=== PATIENT | male | born 1970 | race Hispanic/Latino ===

== ENCOUNTER 2018-01-16 13:02 | Outpatient (CLI) | payer OTHER | END 2018-01-16 13:03 | disposition home or self-care (01) | LOC: BICRAD 13:02 | PROVIDERS: ATTEND Internal Medicine | DX: M25.462 Effusion, left knee (principal) ==

== ENCOUNTER 2019-12-07 18:36 | Inpatient (IN) | payer OTHER ==
[2019-12-07 19:10] LABS: #Lymphocytes 1.4 thou/uL (1.20-3.40); #Monocytes 0.5 thou/uL (0.11-0.59); #Neutrophils 8.4 thou/uL (1.40-6.50); %Basophils 0.1 % (0.0-1.0); %Eosinophils 0.2 % (0.0-10.0); %Lymphocytes 13.3 % (21.0-51.0); %Monocytes 4.5 % (0.0-10.0); %Neutrophils 81.9 % (42.0-75.0); Hemoglobin 15.1 g/dL (14.0-18.0); Mean Corpuscular HGB CONC 33.5 g/dL (32.0-36.0); Mean Corpuscular Hemoglobin 31.8 pg (27.0-31.0); Mean Corpuscular Volume 94.8 fL (78.0-98.0); Mean Platelet Volume 8.3 fL (7.4-10.4); Platelet Count 215 thou/uL (130-400); RBC Distribution Width 11.8 % (11.5-14.5); Red Blood Cell (RBC) Count 4.76 mill/uL (4.70-6.10); White Blood Cell (WBC) Count 10.2 thou/uL (4.8-10.8)
--- NOTE | 2019-12-07 19:20 | RAD ---
Chest AP view INDICATION: Fever and cough COMPARISON: None FINDINGS: Lungs: There are patchy airspace opacities within both lower lobes Cardiac silhouette: The cardiomediastinal silhouette appears within normal limits. Pulmonary vasculature: Normal Pleural spaces: No pleural effusion or pneumothorax is demonstrated. Upper abdomen: No abnormality seen. Osseous structures: No acute osseous abnormality. Additional findings: None. IMPRESSION: Patchy airspace opacities within both lower lobes. This is a pattern that can be seen with Covid 19 i nfections. Recommend consideration for Covid testing.
[2019-12-07 19:26] LABS: ALT (SGPT) 62 U/L (8-55); AST (SGOT) 60 U/L (5-34); Albumin 3.9 g/dL (3.5-5.0); Alkaline Phosphatase 98 U/L (40-110); Anion Gap 14 mmol/L (10-20); BUN (Urea Nitrogen) 10 mg/dL (8.9-20.6); Bilirubin, Total 0.5 mg/dL (0.2-1.2); Calc. Creatinine Clearance 0 mL/min (70-130); Calcium 9.2 mg/dL (7.8-10.44); Carbon Dioxide 25 mmol/L (22-29); Chloride 102 mmol/L (98-107); Estimated GFR-MDRD 88; Globulin 4.2 g/dL (2.4-3.5); Glucose 112 mg/dL (70-105); Potassium 4.2 mmol/L (3.5-5.1); Protein, Total 8.1 g/dL (6.0-8.3); Sodium 137 mmol/L (136-145)
[2019-12-07] MEDS ORDERED: Azithromycin 500 MG VIAL ONE (20:32)
[2019-12-07] MEDS ORDERED: Acetaminophen 500 MG TAB ONE (20:32)
[2019-12-08 00:41] VITALS: BMI 25.7
[2019-12-08] MEDS ORDERED: hydrALAZINE 20 MG/ML VIAL SLOW IVP PRN (01:57)
[2019-12-08] MEDS ORDERED: Promethazine HCl 12.5 MG in Sodium Chloride 0.9% 50 ML IVPB PRN (01:57)
[2019-12-08] MEDS ORDERED: Acetaminophen 325 MG TAB PO PRN (01:57)
[2019-12-08] MEDS ORDERED: HYDROcodone/Acetaminophen 5/325 mg Tablet PO PRN (01:57)
[2019-12-08] MEDS ORDERED: Ondansetron PF 4 MG/2 ML Vial IVP PRN (01:57)
[2019-12-08] MEDS ORDERED: cloNIDine 0.1 MG TAB PO PRN (01:57)
[2019-12-08] MEDS ORDERED: Labetalol HCl 100 MG/20 ML VIAL SLOW IVP PRN (01:57)
[2019-12-08] MEDS ORDERED: Azithromycin 500 MG in Syringe 0 ML IVPB ONE (02:01)
--- NOTE | 2019-12-08 02:02 | PDOC.HHP ---
Hospitalist HPI - History of Present Illness fever, myalgia, malaise, lethargy, cough, chest/back pain History of Present Illness: Patient is a 49 year old male with no PMH who presents to ED for fever, myalgia , malaise, lethargy, cough, chest/back pain. Symptoms x several days, no known covid exposure, no cardiac history. Chest pain is pleuritic. RR in 30s but improved. Some diarrhea yesterday. In ED, lactic acid 1.1, LFTs mildly elevated , CXR revealed bilateral lower lobe pneumonia suspicious for COVID 19. No obvious sepsis, blood cultures collected, given IVF, abx, placed on O2 and admitted for likely covid 19 pneumonia. Hospitalist ROS - Review of Systems Constitutional: reports: fever, chills, weakness, malaise Eyes: denies: pain, vision change, conjunctivae inflammation, eyelid inflammation, redness, other ENT: denies: ear pain, ear discharge, nose pain, nose discharge, nose congestion , mouth pain, mouth swelling, throat pain, throat swelling, other Respiratory: reports: cough, shortness of breath, pleuritic pain. denies: dry, hemoptysis, SOB with excertion, sputum, wheezing, other Cardiovascular: denies: chest pain, palpitations, orthopnea, paroxysmal noc. dyspnea, edema, light headedness, other Gastrointestinal: reports: diarrhea. denies: nausea, vomiting, abdominal pain, constipation, melena, hematochezia, other Genitourinary: denies: dysuria, frequency, incontinence, hematuria, retention, other Musculoskeletal: reports: other (diffuse myalgia chest and back). denies: neck pain, shoulder pain, arm pain, back pain, hand pain, leg pain, foot pain Skin: denies: rash, lesions, lima, bruising, other Neurological: denies: weakness, numbness, incoordination, change in speech, confusion, seizures, other All other systems reviewed; all pertinent +/- noted in HPI/Subj Hospitalist History - Past Medical History Other Medical History: no significant medical, surgical, family history - Past Surgical History Other Surgical History: no significant medical, surgical, family history - Family History Other Family History: no significant medical, surgical, family history - Social History Smoking Status: Never smoker Alcohol: reports: None Drugs: reports: none - Exam General Appearance: NAD, awake alert Eye: PERRL, anicteric sclera ENT: normocephalic atraumatic, no oropharyngeal lesions, moist mucosa Neck: supple, symmetric, no JVD, no thyromegaly, no lymphadenopathy, no carotid bruit Heart: RRR, no murmur, no gallops, no rubs, normal peripheral pulses Respiratory: CTAB, no wheezes, no rales, no ronchi, normal chest expansion, no tachypnea, normal percussion Gastrointestinal: soft, non-tender, non-distended, normal bowel sounds, no palpable masses, no hepatomegaly, no splenomegaly, no bruit Extremities: no cyanosis, no clubbing, no edema Skin: normal turgor, no lesions, no rashes Neurological: cranial nerve grossly intact, normal sensation to touch, no weakness, no focal deficits, no new deficit Musculoskeletal: normal tone, normal strength, no muscle wasting Psychiatric: normal affect, normal behavior, A&O x 3 Hospitalist Results - Labs Result Diagrams: 12/07/19 18:56 12/07/19 18:56 Lab results: WBC 10.2 thou/uL (4.8-10.8) 12/07/19 18:56 Hgb 15.1 g/dL (14.0-18.0) 12/07/19 18:56 Hct 45.1 % (42.0-52.0) 12/07/19 18:56 MCV 94.8 fL (78.0-98.0) 12/07/19 18:56 Plt Count 215 thou/uL (130-400) 12/07/19 18:56 Neutrophils % 81.9 % (42.0-75.0) H 12/07/19 18:56 Sodium 137 mmol/L (136-145) 12/07/19 18:56 Potassium 4.2 mmol/L (3.5-5.1) 12/07/19 18:56 Chloride 102 mmol/L (98-107) 12/07/19 18:56 Carbon Dioxide 25 mmol/L (22-29) 12/07/19 18:56 BUN 10 mg/dL (8.9-20.6) 12/07/19 18:56 Creatinine 0.92 mg/dL (0.7-1.3) 12/07/19 18:56 Glucose 112 mg/dL (70-105) H 12/07/19 18:56 Lactic Acid 1.1 mmol/L (0.5-2.2) 12/07/19 18:56 Calcium 9.2 mg/dL (7.8-10.44) 12/07/19 18:56 Total Bilirubin 0.5 mg/dL (0.2-1.2) 12/07/19 18:56 AST 60 U/L (5-34) H 12/07/19 18:56 ALT 62 U/L (8-55) H 12/07/19 18:56 Alkaline Phosphatase 98 U/L (40-110) 12/07/19 18:56 Serum Total Protein 8.1 g/dL (6.0-8.3) 12/07/19 18:56 Albumin 3.9 g/dL (3.5-5.0) 12/07/19 18:56 Additional comment: VITAL SIGNS SunDec 07, 2019 22:00 CATHY Villalobos Shelley BP: 113/63 Pulse: 78 Resp: 26 Temp: 99.6 (Oral) Pain: 8 O2 sat: 96 on (Room Air) Time: 12/07/2019 22:00. XR Chest 1 View Portable Observe DT: SunDec 07, 2019 18:51 CXRP Chest AP view INDICATION: Fever and cough COMPARISON: None FINDINGS: Lungs: There are patchy airspace opacities within both lower lobes Cardiac silhouette: The cardiomediastinal silhouette appears within normal limits. Pulmonary vasculature: Normal Pleural spaces: No pleural effusion or pneumothorax is demonstrated. Upper abdomen: No abnormality seen. Osseous structures: No acute osseous abnormality. Additional findings: None. IMPRESSION: Patchy airspace opacities within both lower lobes. This is a pattern that can be seen with Covid 19 i nfections. Recommend consideration for Covid testing. - EKG Interpretation EKG: NSR 86 bpm, no obvious ST changes Hospitalist H&P A/P - Plan Plan: Patient is a 49 year old male with no PMH who presents to ED for fever, myalgia , malaise, lethargy, cough, chest/back pain. # fever, myalgia, malaise, lethargy, cough, chest/back pain Symptoms x several days, no known covid exposure, no cardiac history. Chest pain is pleuritic. RR in 30s but improved. Some diarrhea yesterday. In ED, lactic acid 1.1, LFTs mildly elevated, CXR revealed bilateral lower lobe pneumonia suspicious for COVID 19. No obvious sepsis, blood cultures collected, given IVF, abx, placed on O2 and admitted for likely covid 19 pneumonia. - admitted to med/surg - follow covid test - empiric ceftriaxone/azithromycin - monitor for progression of disease
[2019-12-08] MEDS: cefTRIAXone\\ROCEPHIN 1 GM in Sodium Chloride 0.9% 100 ML IVPB SCH (02:49)
[2019-12-08] MEDS: Guaifenesin DM 100-10/5 ML UDCUP PO PRN ×2 (03:11→17:10)
[2019-12-08 05:32] LABS: #Lymphocytes 1.6 thou/uL (1.20-3.40); #Monocytes 0.5 thou/uL (0.11-0.59); #Neutrophils 7.5 thou/uL (1.40-6.50); %Basophils 0.3 % (0.0-1.0); %Eosinophils 0.1 % (0.0-10.0); %Lymphocytes 16.6 % (21.0-51.0); %Monocytes 5.4 % (0.0-10.0); %Neutrophils 77.6 % (42.0-75.0); Hemoglobin 13.8 g/dL (14.0-18.0); Mean Corpuscular HGB CONC 34.4 g/dL (32.0-36.0); Mean Corpuscular Hemoglobin 32.3 pg (27.0-31.0); Mean Corpuscular Volume 93.8 fL (78.0-98.0); Mean Platelet Volume 8.4 fL (7.4-10.4); Platelet Count 221 thou/uL (130-400); RBC Distribution Width 11.8 % (11.5-14.5); Red Blood Cell (RBC) Count 4.27 mill/uL (4.70-6.10); White Blood Cell (WBC) Count 9.7 thou/uL (4.8-10.8)
[2019-12-08 05:53] LABS: Anion Gap 11 mmol/L (10-20); BUN (Urea Nitrogen) 10 mg/dL (8.9-20.6); Calc. Creatinine Clearance 119 mL/min (70-130); Calcium 8.7 mg/dL (7.8-10.44); Carbon Dioxide 26 mmol/L (22-29); Chloride 103 mmol/L (98-107); Estimated GFR-MDRD Greater than 90; Glucose 114 mg/dL (70-105); Magnesium 2.4 mg/dL (1.6-2.6); Potassium 4.1 mmol/L (3.5-5.1); Sodium 136 mmol/L (136-145)
[2019-12-08 05:58] LABS: Troponin I 0.027 ng/mL (< 0.028)
[2019-12-08] MEDS: Azithromycin 250 MG TAB PO SCH (08:36)
[2019-12-08] MEDS: Famotidine 20 MG TAB PO SCH ×2 (08:36→21:11)
[2019-12-08 08:55] LABS: Troponin I Less than 0.010 ng/mL (< 0.028)
--- NOTE | 2019-12-08 12:05 | EKG ---
Test Reason : CP Blood Pressure : / mmHG Vent. Rate : 086 BPM Atrial Rate : 086 BPM P-R Int : 128 ms QRS Dur : 098 ms QT Int : 360 ms P-R-T Axes : 041 -24 027 degrees QTc Int : 430 ms Normal sinus rhythm Normal ECG Confirmed by TRAVIS STINSON, KERVIN Hall ([id number]), image editor ELISABET MORENO ([id number]) on 12/08/2019 12:04:51 PM Referred By: Confirmed By:KERVIN ROBLES MD
[2019-12-08 14:19] LABS: SARS-CoV-2 MS2 Positive; SARS-CoV-2 N Gene Positive; SARS-CoV-2 S Gene Positive; SARS-CoV-2 orf1ab Positive
[2019-12-08] MEDS ORDERED: traMADol HCl 50 MG TAB PO PRN (14:55)
--- NOTE | 2019-12-08 14:57 | PDOC.HOSPP ---
- Subjective Encounter Date: 12/08/19 Encounter Time: 10:20 Subjective: pt is sleeping, on verabl questioning, he is able to respond. he does not exhibit any obvious SOB; COVID +ve. - Objective Vital Signs & Weight: Vital Signs (12 hours) Temp Pulse Resp BP Pulse Ox 12/08/19 13:00 100.2 F H 84 20 129/76 93 L 12/08/19 08:45 100.7 F H 75 18 127/76 93 L 12/08/19 08:00 93 L 12/08/19 03:22 99.5 F 77 18 115/72 95 Weight Weight 164 lb 0.383 oz I&O: 12/07/19 12/08/19 12/09/19 06:59 06:59 06:59 Intake Total 420 Balance 420 Result Diagrams: 12/08/19 05:06 12/08/19 05:06 Hospitalist ROS - Medication Medications: Active Medications Generic Name Dose Route Start Last Admin Trade Name Freq PRN Reason Stop Dose Admin Azithromycin 250 mg 12/08/19 09:00 12/08/19 08:36 Zithromax PO 12/11/19 09:01 250 mg DAILY MARGRET Administration Famotidine 20 mg 12/08/19 09:00 12/08/19 08:36 Pepcid PO 20 mg BID MARGRET Administration Guaifenesin/Dextromethorphan 15 ml 12/08/19 01:57 12/08/19 03:11 Robitussin Dm PO 15 ml Q4H PRN Administration Cough Ceftriaxone Sodium 1 gm/ 100 mls @ 200 mls/hr 12/08/19 02:30 12/08/19 02:49 Sodium Chloride IVPB 100 mls Q24HR MARGRET Administration - Exam General Appearance: NAD, awake alert Eye: PERRL ENT: normocephalic atraumatic Neck: supple Heart: normal peripheral pulses Respiratory: normal chest expansion Neurological: no focal deficits Psychiatric: normal affect, normal behavior, A&O x 3 Hosp A/P - Plan COVID pneumonia Hypoxic resp failure Low grage temp Generalized body ache/pain --symptomatic treatment - will cw abx -decadron and lovenox added - will fw on crp and other labs periodically
[2019-12-08 16:37] LABS: Troponin I Less than 0.010 ng/mL (< 0.028)
[2019-12-08] MEDS: Enoxaparin Sodium 40 MG/0.4 ML SYRINGE SC SCH (21:11)
[2019-12-09] MEDS: cefTRIAXone\\ROCEPHIN 1 GM in Sodium Chloride 0.9% 100 ML IVPB SCH (01:31)
[2019-12-09 05:58] LABS: #Basophils 0.1 thou/uL (0.0-0.2); #Eosinphils 0.1 thou/uL (0.0-0.7); #Lymphocytes 3.7 thou/uL (1.20-3.40); #Monocytes 0.9 thou/uL (0.11-0.59); #Neutrophils 3.9 thou/uL (1.40-6.50); %Basophils 0.8 % (0.0-1.0); %Eosinophils 1.5 % (0.0-10.0); %Lymphocytes 42.7 % (21.0-51.0); %Monocytes 9.8 % (0.0-10.0); %Neutrophils 45.1 % (42.0-75.0); Hemoglobin 14.4 g/dL (14.0-18.0); Mean Corpuscular HGB CONC 32.7 g/dL (32.0-36.0); Mean Corpuscular Hemoglobin 30.8 pg (27.0-31.0); Mean Corpuscular Volume 94.1 fL (78.0-98.0); Platelet Count 316 thou/uL (130-400); RBC Distribution Width 11.8 % (11.5-14.5); Red Blood Cell (RBC) Count 4.67 mill/uL (4.70-6.10); White Blood Cell (WBC) Count 8.7 thou/uL (4.8-10.8)
[2019-12-09 06:25] LABS: Anion Gap 16 mmol/L (10-20); BUN (Urea Nitrogen) 14 mg/dL (8.9-20.6); Calc. Creatinine Clearance 115 mL/min (70-130); Calcium 9.3 mg/dL (7.8-10.44); Carbon Dioxide 22 mmol/L (22-29); Chloride 104 mmol/L (98-107); Estimated GFR-MDRD Greater than 90; Glucose 93 mg/dL (70-105); Magnesium 2.6 mg/dL (1.6-2.6); Potassium 4.1 mmol/L (3.5-5.1); Sodium 138 mmol/L (136-145)
[2019-12-09] MEDS: Azithromycin 250 MG TAB PO SCH (08:16)
[2019-12-09] MEDS: Enoxaparin Sodium 40 MG/0.4 ML SYRINGE SC SCH ×2 (08:16→21:45)
[2019-12-09] MEDS: Dexamethasone 4 MG TAB PO SCH (08:16)
[2019-12-09 11:12] LABS: ALT (SGPT) 87 U/L (8-55); AST (SGOT) 105 U/L (5-34); Albumin 3.6 g/dL (3.5-5.0); Alkaline Phosphatase 95 U/L (40-110); Bilirubin, Direct 0.2 mg/dL (0.1-0.3); Bilirubin, Total 0.4 mg/dL (0.2-1.2); CRP (Inflammatory) 16.05 mg/dL (= or < 0.5); Protein, Total 7.8 g/dL (6.0-8.3)
[2019-12-09] MEDS: Famotidine 20 MG TAB PO SCH (11:55)
--- NOTE | 2019-12-09 15:09 | PDOC.HOSPP ---
- Subjective Encounter Date: 12/09/19 Encounter Time: 10:30 Subjective: sudanese speaking, pt seen briefly and he is resting comfortably. explained that he may be here as we are following inflammatory markers, O2 status and clinical eval. pt understands and he speaks Cymraes. - Objective Vital Signs & Weight: Vital Signs (12 hours) Temp Pulse Resp BP Pulse Ox 12/09/19 13:05 99.1 F 74 18 137/85 96 12/09/19 08:20 99.6 F 73 18 114/76 94 L 12/09/19 04:40 98.7 F 68 16 110/77 94 L Weight Weight 164 lb 0.383 oz I&O: 12/08/19 12/09/19 12/10/19 06:59 06:59 06:59 Intake Total 420 740 Balance 420 740 Result Diagrams: 12/09/19 05:28 12/09/19 05:28 Hospitalist ROS - Medication Medications: Active Medications Generic Name Dose Route Start Last Admin Trade Name Freq PRN Reason Stop Dose Admin Acetaminophen 650 mg 12/08/19 01:57 12/08/19 16:15 Tylenol PO 650 mg Q4H PRN Administration Headache/Fever/Mild Pain (1-3) Azithromycin 250 mg 12/08/19 09:00 12/09/19 08:16 Zithromax PO 12/11/19 09:01 250 mg DAILY MARGRET Administration Dexamethasone 6 mg 12/09/19 08:00 12/09/19 08:16 Decadron PO 6 mg QAM-WM MARGRET Administration Enoxaparin Sodium 40 mg 12/08/19 21:00 12/09/19 08:16 Lovenox SC 40 mg BID MARGRET Administration Guaifenesin/Dextromethorphan 15 ml 12/08/19 01:57 12/08/19 17:10 Robitussin Dm PO 15 ml Q4H PRN Administration Cough Ceftriaxone Sodium 1 gm/ 100 mls @ 200 mls/hr 12/08/19 02:30 12/09/19 01:31 Sodium Chloride IVPB 100 mls Q24HR MARGRET Administration - Exam General Appearance: NAD, awake alert Eye: PERRL ENT: normocephalic atraumatic Neurological: no focal deficits Hosp A/P - Plan COVID pneumonia Hypoxic resp failure Low grage temp Generalized body ache/pain --symptomatic treatment - will cw abx -decadron and lovenox added - will fw on crp and other labs periodically sats good - no lab markders on admission -today - d-dimer 0.8 Enzo 2670 CRP 16 LFT - 105/87/95 resp'ly Admitted on He had sxs for few days prior to coming here. as markers are quite high, even though pt clinically looks good, COVID could have 2nd phase of worsening -so will get one more sets of these markers in 2 to 3 days, if they are trending down and he is clinically remained stable, then sosa.
[2019-12-09] MEDS ORDERED: Albuterol 200 PUFF (6.7GM INHALER) INH PRN (19:43)
[2019-12-10] MEDS: cefTRIAXone\\ROCEPHIN 1 GM in Sodium Chloride 0.9% 100 ML IVPB SCH (02:47)
[2019-12-10 06:31] LABS: #Basophils 0.1 thou/uL (0.0-0.2); #Eosinphils 0.1 thou/uL (0.0-0.7); #Lymphocytes 1.6 thou/uL (1.20-3.40); #Monocytes 0.7 thou/uL (0.11-0.59); #Neutrophils 4.5 thou/uL (1.40-6.50); %Basophils 0.7 % (0.0-1.0); %Eosinophils 0.9 % (0.0-10.0); %Monocytes 10.3 % (0.0-10.0); Mean Corpuscular HGB CONC 33.9 g/dL (32.0-36.0); Mean Corpuscular Hemoglobin 31.6 pg (27.0-31.0); Mean Platelet Volume 7.3 fL (7.4-10.4); Platelet Count 393 thou/uL (130-400); RBC Distribution Width 11.6 % (11.5-14.5); Red Blood Cell (RBC) Count 4.43 mill/uL (4.70-6.10); White Blood Cell (WBC) Count 6.9 thou/uL (4.8-10.8)
[2019-12-10 06:57] LABS: Anion Gap 16 mmol/L (10-20); BUN (Urea Nitrogen) 17 mg/dL (8.9-20.6); Calc. Creatinine Clearance 104 mL/min (70-130); Calcium 9.3 mg/dL (7.8-10.44); Carbon Dioxide 23 mmol/L (22-29); Chloride 102 mmol/L (98-107); Estimated GFR-MDRD 89; Glucose 119 mg/dL (70-105); Magnesium 2.4 mg/dL (1.6-2.6); Sodium 137 mmol/L (136-145)
[2019-12-10] MEDS: Azithromycin 250 MG TAB PO SCH (09:09)
[2019-12-10] MEDS: Dexamethasone 4 MG TAB PO SCH (09:09)
[2019-12-10] MEDS: Enoxaparin Sodium 40 MG/0.4 ML SYRINGE SC SCH ×2 (09:09→20:59)
[2019-12-10] MEDS: Pantoprazole 40 MG GRANULES PACKET PO SCH (09:15)
--- NOTE | 2019-12-10 15:18 | PDOC.HOSPP ---
- Subjective Encounter Date: 12/10/19 Encounter Time: 12:45 Subjective: pt followed peripherally mild cough and mild SOB. talk to RN sats 95% in RA. - Objective Vital Signs & Weight: Vital Signs (12 hours) Temp Pulse Resp BP Pulse Ox 12/10/19 12:20 98.7 F 65 22 H 119/67 95 12/10/19 09:15 98.1 F 64 20 118/79 95 12/10/19 04:26 98.5 F 59 L 18 124/75 94 L Weight Weight 164 lb 0.383 oz I&O: 12/09/19 12/10/19 12/11/19 06:59 06:59 06:59 Intake Total 740 Balance 740 Result Diagrams: 12/10/19 06:21 12/10/19 06:21 Hospitalist ROS - Medication Medications: Active Medications Generic Name Dose Route Start Last Admin Trade Name Freq PRN Reason Stop Dose Admin Acetaminophen 650 mg 12/08/19 01:57 12/08/19 16:15 Tylenol PO 650 mg Q4H PRN Administration Headache/Fever/Mild Pain (1-3) Albuterol Sulfate 3 puff 12/09/19 19:43 12/09/19 20:21 Proventil Hfa INH 3 puff Q6H PRN Administration SOB &/or Wheezing Azithromycin 250 mg 12/08/19 09:00 12/10/19 09:09 Zithromax PO 12/11/19 09:01 250 mg DAILY MARGRET Administration Dexamethasone 6 mg 12/09/19 08:00 12/10/19 09:09 Decadron PO 6 mg QAM-WM MARGRET Administration Enoxaparin Sodium 40 mg 12/08/19 21:00 12/10/19 09:09 Lovenox SC 40 mg BID MARGRET Administration Guaifenesin/Dextromethorphan 15 ml 12/08/19 01:57 12/08/19 17:10 Robitussin Dm PO 15 ml Q4H PRN Administration Cough Ceftriaxone Sodium 1 gm/ 100 mls @ 200 mls/hr 12/08/19 02:30 12/10/19 02:47 Sodium Chloride IVPB 100 mls Q24HR MARGRET Administration Pantoprazole Sodium 40 mg 12/10/19 09:00 12/10/19 09:15 Protonix PO 40 mg DAILY MARGRET Administration Hosp A/P - Plan COVID pneumonia Hypoxic resp failure Low grage temp Generalized body ache/pain --symptomatic treatment - will cw abx -decadron and lovenox added - will fw on crp and other labs periodically sats good - no lab markders on admission -today - d-dimer 0.8 Enzo 2670 CRP 16 LFT - 105/87/95 resp'ly Admitted on He had sxs for few days prior to coming here. as markers are quite high, even though pt clinically looks good, COVID could have 2nd phase of worsening -so will get one more sets of these markers in 2 to 3 days, if they are trending down and he is clinically remained stable, then dc. fw on crp adn ferritin tomorrow. if numbers coming down and no productive cough or severe hypoxia, plan for dc.
[2019-12-10] MEDS: Guaifenesin DM 100-10/5 ML UDCUP PO PRN (16:41)
[2019-12-11] MEDS: cefTRIAXone\\ROCEPHIN 1 GM in Sodium Chloride 0.9% 100 ML IVPB SCH (02:13)
[2019-12-11] MEDS: Enoxaparin Sodium 40 MG/0.4 ML SYRINGE SC SCH ×2 (09:03→20:57)
[2019-12-11] MEDS: Dexamethasone 4 MG TAB PO SCH (09:03)
[2019-12-11] MEDS: Azithromycin 250 MG TAB PO SCH (09:03)
[2019-12-11] MEDS: Pantoprazole 40 MG GRANULES PACKET PO SCH (09:04)
--- NOTE | 2019-12-11 15:26 | PDOC.HOSPP ---
- Subjective Encounter Date: 12/11/19 Encounter Time: 12:40 Subjective: pt seen this morning, sitting in the bed. comfortable, states that he has some cough and SOB w.. ambulation to the rest room. He is RA. - Objective Vital Signs & Weight: Vital Signs (12 hours) Temp Pulse Resp BP Pulse Ox 12/11/19 08:00 98.3 F 74 20 131/78 94 L Weight Weight 164 lb 0.383 oz I&O: 12/10/19 12/11/19 12/12/19 06:59 06:59 06:59 Intake Total 171 Balance 171 Result Diagrams: 12/10/19 06:21 12/10/19 06:21 Hospitalist ROS - Medication Medications: Active Medications Generic Name Dose Route Start Last Admin Trade Name Freq PRN Reason Stop Dose Admin Acetaminophen 650 mg 12/08/19 01:57 12/08/19 16:15 Tylenol PO 650 mg Q4H PRN Administration Headache/Fever/Mild Pain (1-3) Albuterol Sulfate 3 puff 12/09/19 19:43 12/09/19 20:21 Proventil Hfa INH 3 puff Q6H PRN Administration SOB &/or Wheezing Dexamethasone 6 mg 12/09/19 08:00 12/11/19 09:03 Decadron PO 6 mg QAM-WM MARGRET Administration Enoxaparin Sodium 40 mg 12/08/19 21:00 12/11/19 09:03 Lovenox SC 40 mg BID MARGRET Administration Guaifenesin/Dextromethorphan 15 ml 12/08/19 01:57 12/10/19 16:41 Robitussin Dm PO 15 ml Q4H PRN Administration Cough Ceftriaxone Sodium 1 gm/ 100 mls @ 200 mls/hr 12/08/19 02:30 12/11/19 02:13 Sodium Chloride IVPB 100 mls Q24HR MARGRET Administration Pantoprazole Sodium 40 mg 12/10/19 09:00 12/11/19 09:04 Protonix PO 40 mg DAILY MARGRET Administration Sodium Chloride 10 ml 12/08/19 02:06 12/11/19 02:13 Flush - Normal Saline IVF 10 ml PRN PRN Administration Saline Flush Tramadol HCl 50 mg 12/08/19 14:55 12/11/19 13:25 Ultram PO 50 mg Q6H PRN Administration Pain - Exam General Appearance: NAD Eye: PERRL ENT: normocephalic atraumatic Neck: supple Neurological: no focal deficits Psychiatric: A&O x 3 Hosp A/P - Plan COVID pneumonia Hypoxic resp failure Low grage temp Generalized body ache/pain --symptomatic treatment - will cw abx -decadron and lovenox added - will fw on crp and other labs periodically sats good - no lab markers on admission -today - d-dimer 0.8 Enzo 2670----------------->988[on 2nd] CRP 16------------------->4.1 LFT - 105/87/95 resp'ly Admitted on He had sxs for few days prior to coming here. as markers are quite high, even though pt clinically looks good, PRIMO could have 2nd phase of worsening -so will get one more sets of these markers in 2 to 3 days, if they are trending down and he is clinically remained stable, then dc. fw on crp and ferritin --trending down as above. -- will see how he does tomorrow, and no hypoxia and cough not worsening, then plan for dc.
[2019-12-12] MEDS: cefTRIAXone\\ROCEPHIN 1 GM in Sodium Chloride 0.9% 100 ML IVPB SCH (02:28)
[2019-12-12] MEDS: Dexamethasone 4 MG TAB PO SCH (08:19)
[2019-12-12] MEDS: Enoxaparin Sodium 40 MG/0.4 ML SYRINGE SC SCH ×2 (08:19→19:34)
[2019-12-12] MEDS ORDERED: Azithromycin 250 MG TAB PO SCH (10:45)
[2019-12-12] MEDS ORDERED: Azithromycin 500 MG in Sodium Chloride 0.9% 250 ML 250 ML IVPB SCH (11:00)
--- NOTE | 2019-12-12 13:30 | PDOC.HOSPP ---
- Subjective Encounter Date: 12/12/19 Encounter Time: 11:00 Subjective: pt feels short of breath not feeling as good as y'day. he looks fatigued than y'day. though his sats are better. 96% -- no change for the last few days. talk to RN. - Objective Vital Signs & Weight: Vital Signs (12 hours) Temp Pulse Resp BP Pulse Ox 12/12/19 11:23 98.3 F 60 20 107/63 96 12/12/19 08:20 96 12/12/19 08:00 97.9 F 52 L 20 124/77 96 12/12/19 02:40 98.0 F 52 L 18 106/67 98 Weight Weight 164 lb 0.383 oz I&O: 12/11/19 12/12/19 12/13/19 06:59 06:59 06:59 Intake Total 171 580 Balance 171 580 Result Diagrams: 12/10/19 06:21 12/10/19 06:21 Additional Labs: Accuchecks 12/11/19 16:41 POC Glucose 200 H Hospitalist ROS - Medication Medications: Active Medications Generic Name Dose Route Start Last Admin Trade Name Freq PRN Reason Stop Dose Admin Acetaminophen 650 mg 12/08/19 01:57 12/08/19 16:15 Tylenol PO 650 mg Q4H PRN Administration Headache/Fever/Mild Pain (1-3) Albuterol Sulfate 3 puff 12/09/19 19:43 12/09/19 20:21 Proventil Hfa INH 3 puff Q6H PRN Administration SOB &/or Wheezing Dexamethasone 6 mg 12/09/19 08:00 12/12/19 08:19 Decadron PO 6 mg QAM-WM MARGRET Administration Enoxaparin Sodium 40 mg 12/08/19 21:00 12/12/19 08:19 Lovenox SC 40 mg BID MARGRET Administration Guaifenesin/Dextromethorphan 15 ml 12/08/19 01:57 12/10/19 16:41 Robitussin Dm PO 15 ml Q4H PRN Administration Cough Ceftriaxone Sodium 1 gm/ 100 mls @ 200 mls/hr 12/08/19 02:30 12/12/19 02:28 Sodium Chloride IVPB 100 mls Q24HR MARGRET Administration Pantoprazole Sodium 40 mg 12/12/19 09:00 12/12/19 08:19 Protonix PO 40 mg DAILY MARGRET Administration Sodium Chloride 10 ml 12/08/19 02:06 12/11/19 02:13 Flush - Normal Saline IVF 10 ml PRN PRN Administration Saline Flush Tramadol HCl 50 mg 12/08/19 14:55 12/11/19 13:25 Ultram PO 50 mg Q6H PRN Administration Pain - Exam Eye: PERRL ENT: normocephalic atraumatic Neck: supple Neurological: no focal deficits Psychiatric: A&O x 3 Hosp A/P - Plan COVID pneumonia Hypoxic resp failure Low grage temp Generalized body ache/pain --symptomatic treatment - will cw abx -decadron and lovenox added - will fw on crp and other labs periodically sats good - no lab markers on admission -today - d-dimer 0.8 Enzo 2670----------------->988[on 2nd] CRP 16------------------->4.1 LFT - 105/87/95 resp'ly Admitted on He had sxs for few days prior to coming here. as markers are quite high, even though pt clinically looks good, PRIMO could have 2nd phase of worsening -so will get one more sets of these markers in 2 to 3 days, if they are trending down and he is clinically remained stable, then dc. fw on crp and ferritin --trending down as above. cough intermittently and short of breath, mild w.. ambulation to reduce the risk of bounce back w.. being more sick, [as COVID +ve tend to have 2 phase acuity], will wait another day or two prior to dc. cw above mgmt.
[2019-12-13] MEDS: cefTRIAXone\\ROCEPHIN 1 GM in Sodium Chloride 0.9% 100 ML IVPB SCH (02:20)
[2019-12-13] MEDS: Dexamethasone 4 MG TAB PO SCH (08:11)
[2019-12-13] MEDS: Enoxaparin Sodium 40 MG/0.4 ML SYRINGE SC SCH (08:12)
[2019-12-13] MEDS ORDERED: Azithromycin 250 MG TAB PO SCH (09:00)
[2019-12-13 15:03] VITALS: BP 111/69; TEMP 98.8
--- NOTE | 2019-12-14 02:38 | DIS ---
DATE OF ADMISSION: 12/08/2019 DATE OF DISCHARGE: 12/13/2019 HOSPITAL COURSE: Mr. Champion is a 49-year-old male with no medical history, who presented with fever, myalgias, and cough for several days. He was diagnosed with COVID pneumonia and was treated with steroids and antibiotics. The patient improved over the duration of his inpatient stay, and inflammatory markers downtrended significantly on the day of discharge. He was hemodynamically stable and breathing and saturating well on room air. He was discharged on Decadron to complete a total treatment of 7 days. PHYSICAL EXAMINATION: VITAL SIGNS: Blood pressure 111/69, temperature 98.8, pulse 70, respiratory rate 16, and oxygen saturation 96% on room air. GENERAL: Sitting comfortably and appears in no distress. HEENT: Normocephalic and atraumatic. No periauricular, postauricular, submandibular, posterior or anterior neck lymphadenopathy. HEART: Regular rate and rhythm. No murmurs, gallops, or rubs. LUNGS: Clear to auscultation bilaterally. No wheezing, rales, or rhonchi. DISCHARGE MEDICATIONS: New medications: Decadron 6 mg p.o. daily three tablets to complete treatment of 7 days, after which the patient can discontinue steroids immediately. Modified medications: No modified medications. Old medications: No old medications. DISCHARGE INSTRUCTIONS: The patient was discharged with instructions to remain in isolation for three additional days based on clinical criteria as well as unknown exact duration of symptoms prior to arrival to the hospital. Job ID: [id number]
--- NOTE | 2019-12-15 07:28 | PQF ---
Akira Sifuentes Jesus ANDERSON, KUNAL [id number] CLINICAL DOCUMENTATION CLARIFICATION FORM: POST DISCHARGE Addendum to original discharge summary date: ____ Late entry note date: __ DATE: 12/15/2019 ATTN:Kunal Jackson Please exercise your independent, professional judgment in responding to the clarification form. Clinical indicators are provided on the bottom of this form for your review Please check appropriate box(s): [ ] Acute hypoxic respiratory failure [ ] Acute on chronic hypoxic respiratory failure [ ] Chronic hypoxic respiratory failure [ x ] Other diagnosis _dyspnea [ ] Unable to determine For continuity of documentation, please document condition throughout progress notes and discharge summary. Thank You. CLINICAL INDICATORS - SIGNS / SYMPTOMS / LABS PN 12/07 "hypoxic respiratory failure" Chest Xray 12/06 "Patchy airspace opacities within the both lower lobes" PN 12/07 "fever,myalgia,malaise,lethargy,cough and chest pain" PN 12/07 "shortness of breath" Vital Signs Respi: 12/07=20 07=24 12/12=18 Vital Signs O2 sat: 12/07=18 12/08=93 12/09=94 12/10=94 RISK FACTORS Covid 19 infection-DS 12/12 PNA-DS 12/12 TREATMENTS: Chest Xray-Collected 12/06 Oxygen via NC-PN 12/07 Azithromycin 500mg IV-AUG 14 Rocephin 1gm IV-AUG 14 Albuterol Sulfate 3puff-AUG 14 (This form is maintained as a part of the permanent medical record) 2014 [id number] All Rights Reserved [email or web address] [phone] JANIE
== END 2019-12-13 17:55 | disposition home or self-care (01) | DRG 177 ==
LOC: ERS 18:36 → T4-B 12-08 00:29
PROVIDERS: ADMIT Internal Medicine; ATTEND Internal Medicine
DX: U07.1 COVID-19 (principal); J12.89 Other viral pneumonia
CPT/HCPCS: 36415; 36416; 71045; 80048; 80053; 80076; 82728; 83605; 83735; 84484; 85025; 85379; 86140; 87040; 87635; 93005; 96365; J0456; J0696; J1650; J3490; J8540; U0003

== ENCOUNTER 2020-01-13 09:30 | Outpatient (CLI) | payer OTHER ==
--- NOTE | 2020-01-13 09:48 | RAD ---
EXAM: Chest 2 views: HISTORY: Viral pneumonia COMPARISON: None. FINDINGS: There is a normal-sized cardiomediastinal silhouette. There is no evidence of consolidation, mass, or pleural effusion. The bones are unremarkable. IMPRESSION: No evidence of acute cardiopulmonary disease
== END 2020-01-13 09:31 | disposition home or self-care (01) ==
LOC: BICRAD 09:30
PROVIDERS: ATTEND Internal Medicine
DX: J12.89 Other viral pneumonia (principal)
CPT/HCPCS: 71046